=== PATIENT | male | born 1960 | race American Indian/Alaskan Native ===

== ENCOUNTER 2021-01-02 08:12 | Day surgery (SDC) | payer SELFPAY ==
[~2021-01-02] VITALS: Ht 172.7 cm; Wt 72.9 kg
[2021-01-02 09:35] VITALS: BP 146/100; PULSE 83; TEMP 97.5
[2021-01-02 11:29] VITALS: TEMP 97.6
[2021-01-02 12:00] VITALS: BP 154/83; PULSE 72
--- NOTE | 2021-01-02 12:00 | NUR ---
Patient returns to room 6 per cart from PACU accompanied by Reena MILLER and is awake and alert. On oxygen at 2L per nasal cannula. Temp 97.1. Asking to go home. States that his throat is sore and is requesting something warm to sip on. Head of cart elevated 45 degrees. IV fluids infusing and site is free of redness. Siderails up x2 and call light in reach. Encouraged to rest.
[2021-01-02 12:15] VITALS: BP 120/77; PULSE 81
--- NOTE | 2021-01-02 12:15 | NUR ---
Patient had removed oxygen. Room air sats 92%. Again asks to go home. Sipping on warm tea. Denies difficulty swallowing.
[2021-01-02 12:30] VITALS: BP 134/82; PULSE 76
--- NOTE | 2021-01-02 12:30 | NUR ---
Repeatadly asking to go home. Instructed that he must void prior to discharge. Ambulatory to the bathroom with standby assist. Able to void and returns to room. IV discontinued and site is free of redness.
[2021-01-02] MEDS ORDERED: NORCO 325 MG-51 TAB PO (12:31)
--- NOTE | 2021-01-02 12:35 | NUR ---
Patient is dressed and standing in the hallway ready to go home. Given dismissal instructions and voices understanding of these. Provided script for Nichols for pain.
--- NOTE | 2021-01-02 12:45 | NUR ---
Patient dismissed to home driven by son and taken to the front per wheelchair and assisted into vehicle with instructions in hand.
== END 2021-01-02 12:33 | disposition home or self-care (01) ==
LOC: SDCO 08:12
DX: C01 Malignant neoplasm of base of tongue (principal); E78.5 Hyperlipidemia, unspecified; I10 Essential (primary) hypertension; G62.9 Polyneuropathy, unspecified; F41.9 Anxiety disorder, unspecified; F32.9 Major depressive disorder, single episode, unspecified; F43.10 Post-traumatic stress disorder, unspecified; Z20.822 Contact with and (suspected) exposure to COVID-19
CPT/HCPCS: J0330; J1100; J1170; J2250; J2405; J2704; J3010; J7120